=== PATIENT | male | born 1970 | race Caucasian/White ===

== ENCOUNTER 2018-10-11 07:54 | Day surgery (SDC) | payer BC ==
[2018-10-11] MEDS ORDERED: NEOMYC/POLYMYX/BACIT 30 GM OINT (09:43)
[2018-10-11] MEDS ORDERED: LIDOCAINE 2% (SDV) 5 ML INJ (09:51)
[2018-10-11] MEDS ORDERED: MEPERIDINE 100 MG INJ (09:51)
[2018-10-11] MEDS ORDERED: NEOSTIGMINE 3 MG/3 ML SYRINGE ×2 (09:51→11:26)
[2018-10-11] MEDS ORDERED: GLYCOPYRROLATE 0.4 MG INJ ×3 (09:51→09:59)
[2018-10-11] MEDS ORDERED: ROCURONIUM 50 MG INJ (09:51)
[2018-10-11] MEDS ORDERED: SUCCINYLCHOLINE CHLORIDE 100 MG/5 ML SYG IV (09:51)
[2018-10-11] MEDS ORDERED: PROPOFOL 20 ML (09:51)
[2018-10-11] MEDS ORDERED: DIPHENHYDRAMINE 50 MG INJ IV (10:30)
[2018-10-11] MEDS ORDERED: hydrALAzine 20 MG INJ IV (10:30)
[2018-10-11] MEDS ORDERED: EPHEDrine 25 MG/5 ML SYG IV (10:30)
[2018-10-11] MEDS ORDERED: ONDANSETRON 4 MG INJ IV (10:30)
[2018-10-11] MEDS ORDERED: FENTAnyl 50 MCG/ML VIAL IV ×2 (10:30)
[2018-10-11] MEDS ORDERED: HYDROmorphONE 1 MG/5 ML IV SYRINGE IV ×3 (10:30)
[2018-10-11] MEDS ORDERED: OXYCODONE/ACETAMINOPHEN (5/325) TAB PO ×2 (10:30)
[2018-10-11] MEDS ORDERED: MEPERIDINE 25 MG INJ IV (10:30)
[2018-10-11] MEDS ORDERED: LABETALOL HCL 20MG INJ IV (10:30)
[2018-10-11] MEDS ORDERED: MIDAZOLAM 1 MG/ML 2 ML INJ IV (10:30)
[2018-10-11] MEDS: LIDOCAINE 1%/EPI (1:100,000) (MDV) 20 ML (11:47)
[2018-10-11] MEDS: OXYMETAZOLINE 0.05% 15 ML NAS SPRAY NASAL (11:47)
[2018-10-11] MEDS: FENTAnyl 50 MCG/ML VIAL IV (12:10)
[2018-10-11] MEDS: METOCLOPRAMIDE 10 MG INJ IV (12:36)
== END 2018-10-11 14:06 | disposition home or self-care (01) ==
LOC: SDS 07:54
DX: J32.9 Chronic sinusitis, unspecified (principal); J34.2 Deviated nasal septum; J34.3 Hypertrophy of nasal turbinates; E78.5 Hyperlipidemia, unspecified; E66.9 Obesity, unspecified; Z87.891 Personal history of nicotine dependence
CPT/HCPCS: 30140; 88300; 88304